=== PATIENT | female | born 1990 | race Caucasian/White ===

== ENCOUNTER 2017-04-09 11:56 | Emergency (ER) | payer BC ==
[~2017-04-09] VITALS: Ht 160 cm; Wt 83.2 kg
[2017-04-09 12:15] VITALS: BP 118/72
--- NOTE | 2017-04-09 12:18 | PHYS DOC ---
General Chief Complaint: EYE PROBLEMS Stated Complaint: EYE PROBLEM Time Seen by MD: 12:15 Source: patient Exam Limitations: no limitations Problems: History of Present Illness Initial Comments Patient is a 26-year-old female who comes to the emergency department with right eye complaints. Patient states that 3 days ago she noticed a "bump" at the medial aspect of her right eye. This bump has appeared to grow the past few days and at times the patient says her vision will blur and she will have to blink to correct it. The bump developed redness as if bleeding yesterday and she noticed a small similar bump at the lateral aspect of her right eye. Other than the occasional blurring which clears with blinking patient denies any issues with her right eye in the past. 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 Timing/Duration: gradual, last week Severity: mild Location: eye (R) Prearrival Treatment: no prearrival treatment Modifying Factors: improves with other Associated Symptoms: other Allergies: Coded Allergies: codeine (Verified Allergy, Unknown, 04/09/17) Past Medical History Medical History: other (polycystic ovarian syndrome, Lyme disease, thyroid disease) Surgical History: other ( section, carpal tunnel, foot tumor) Social History Smoker: non-smoker Alcohol: none Drugs: none Constitutional: denies chills, denies diaphoresis, denies fever, denies malaise Eyes: see HPI Ears: denies dizziness, denies pain, denies tinnitus Nose: denies congestion, denies epistaxis, denies pain Mouth: denies pain, denies swelling Throat: denies pain, denies swelling, denies discharge, denies neck stiffness Respiratory: denies cough, denies shortness of breath Cardiovascular: denies chest pain, denies palpitations Neurological: denies headache, denies numbness, denies paresthesia Physical Exam General Appearance: WD/WN, no apparent distress Eyes: right eye other (at first glance it appears the patient has a subconjunctival hemorrhage medial aspect of the right eye. Closer inspection reveals a fleshy overgrowth tented blood red consistent with pterygium. A lateral lesion is not visualized by me. 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 Patient expressed agreement and understanding Departure Time of Disposition: 12:15 Disposition: 01 HOME, SELF-CARE Diagnosis: pterygium right eye Condition: GOOD Patient Instructions: Pterygium Excision Additional Instructions: Please review the patient education materials. OTC artificial tears per package instructions. Rx: fluorometholone 0.1% ophthalmic drops Follow up with your doctor in 2 days for recheck and referral to ophthalmology if needed. Return to ED with new or changing symptoms. VAN REILLY DO Apr 09, 2017 12:18
== END 2017-04-09 12:39 | disposition home or self-care (01) ==
LOC: ER 11:56
DX: H11.001 Unspecified pterygium of right eye (principal); Z88.5 Allergy status to narcotic agent
CPT/HCPCS: 99283